=== PATIENT | male | born 1960 | race Caucasian/White ===

== ENCOUNTER 2016-07-03 15:02 | Emergency (ER) | payer MEDICARE, BC ==
[~2016-07-03] VITALS: Ht 167.6 cm; Wt 59.0 kg
[~2016-07-03 15:02] MED LIST: ALPR1TAB2 PO; ALPR1TAB6 PO; CITA10TA4 PO; CYCL10TA2 PO; EMTR1TAB11 PO; FENT1PAT17 TD; FENT1PAT21 TD; FEXO1TAB27 PO; FLUT15OI2 TP; MELO-150 PO; MORP100T30 PO; OXYC30TA PO; OXYC80TA16 PO; RALT400T PO; TRAZ300T2 PO; androgel; combivent inhaler
[2016-07-03] MEDS ORDERED: GUAIFENESIN/CODEINE 100mg/10mg 5 ML LIQUID. PO STA (15:29)
[2016-07-03] MEDS ORDERED: KETOROLAC 15 MG/ML VIAL. IV ONE (15:30)
--- NOTE | 2016-07-03 15:50 | RAD ---
EXAM: Chest one view. HISTORY: Chest pain. COMPARISON: 12/26/2009. FINDINGS: A frontal view of the chest is obtained. There are no confluent infiltrates. The lungs are expanded to the 12th posterior ribs. There is no pneumothorax or pleural effusion. The heart is not enlarged. There are atherosclerotic calcifications of the aorta. Changes of cervical fusion are partially visualized. IMPRESSION: 1. Hyperinflation suggests chronic obstructive pulmonary disease. No confluent infiltrates.
[2016-07-03 16:10] LABS: BASO % 1 % (0-3); EOS % 0 % (0-3); HEMATOCRIT 41.7 % (39.0-53.0); LYMPH # 0.8 x10^3/uL (1.0-4.8); LYMPH % 13 % (24-48); MEAN CORPUSCULAR HEMOGLOBIN 33 pg (25-35); MEAN CORPUSCULAR HGB CONC 34 g/dL (31-37); MEAN CORPUSCULAR VOLUME 99 fL (79-100); MONO % 16 % (0-9); NEUT % 70 % (31-73); PLATELET COUNT 142 x10^3/uL (140-400); RED BLOOD COUNT 4.23 x10^6/uL (4.30-5.70); RED CELL DISTRIBUTION WIDTH 12.8 % (11.5-14.5); WHITE BLOOD COUNT 5.9 x10^3/uL (4.0-11.0)
[2016-07-03] MEDS ORDERED: ACETAMINOPHEN 325 MG TABLET. PO ONE (16:15)
[2016-07-03 16:23] LABS: OBC FLU VALID
[2016-07-03 16:25] LABS: ALBUMIN 3.5 g/dL (3.4-5.0); CALCIUM 8.4 mg/dL (8.5-10.1); CREATININE 0.8 mg/dL (0.7-1.3); DIRECT BILIRUBIN 0.1 mg/dL (0.0-0.2); GFR 100.7; POTASSIUM 4.3 mmol/L (3.5-5.1); TOTAL BILIRUBIN 0.4 mg/dL (0.2-1.0); TOTAL PROTEIN 7.1 g/dL (6.4-8.2)
[2016-07-03] MEDS ORDERED: ACETAMINOPHEN 500 MG TABLET PO ONE (17:45)
[2016-07-03] MEDS ORDERED: SULF1TAB24 PO (17:46)
[2016-07-03] MEDS ORDERED: PROM5SYR2 PO (17:46)
--- NOTE | 2016-07-03 17:46 | PHYS DOC ---
Past Medical History Past Medical History: High Cholesterol, HIV, Other Additional Past Medical Histor: neck fussions, with neck hardware Past Surgical History: Other Additional Past Surgical Histo: reconstruction on left shoulder,with x 2 surgeries on neck Alcohol Use: Rarely Drug Use: None Adult General Chief Complaint Chief Complaint: CHEST WALL PAIN HPI HPI Patient is a 55 year old gentleman who presents here today complaining of chest discomfort. Patient reports the pain is been on for approximately 2 days. Patient has a history significant for HIV. Patient does smoke. Patient has no history of hypertension diabetes liver longer or kidney problems. Patient has any history of coronary disease or strokes in the past. Patient's primary care physician is Dr. Quintana. Patient denies any abdominal surgery or gallbladder surgery. Patient does not drink or do drugs. Patient is not allergic to any medications. Patient denied any fevers shaking chills although he does have a temperature of 101.5 here in the ER. Patient denies any nausea vomiting or diarrhea. Patient reports she's had a productive cough with pain to his chest with inspiration. Patient has any sore throat or ear pain. Patient reports she is on morphine fentanyl and oxycodone for his pain however reports he ran out of his fentanyl and is not had a chance to get that refilled of yet. Patient denies any dyspnea. She denies any rash. Patient has any headache. Patient has any nuchal rigidity. Patient denies any abdominal pain. Patient's physical exam was unremarkable. Patient's TMs are clear. Patient's oropharynx is clear. Patient's lungs had no wheezing rales or rhonchi. Patient' s abdomen was soft nontender no rebound or guarding. Patient did have reproducible tenderness to palpation to his anterior chest wall. Patient's physical exam was unremarkable and the ER otherwise Patient's ER workup was significant for normal chest x-ray and labs. Patient's influenza test were negative. Patient will be discharged home in stable condition on Bactrim. Patient likely has bronchitis. Given his history of HIV, for possible early PCP or early pneumonia empirically. Patient is very appreciative for the care that he is gone and he is requesting that we send him home some Phenergan with codeine. I did write the patient prescription for some Phenergan With Codeine to help him with the excessive coughing that he is doing. Review of Systems Review of Systems Constitutional: Denies fever or chills [] Eyes: Denies change in visual acuity, redness, or eye pain [] HENT: Denies nasal congestion or sore throat [] All other review of systems are negative except as documented in the history of present illness portion. Current Medications Current Medications Current Medications Medications (Trade) Dose Ordered Sig/Lan Start Time Stop Time Status Last Admin Dose Admin Acetaminophen (Tylenol) 1,000 mg 1X ONCE 07/03/16 17:45 07/03/16 17:46 DC Guaifenesin/ Codeine Phosphate (Robitussin Ac) 5 ml 1X STAT 07/03/16 15:29 07/03/16 15:43 DC 07/03/16 16:13 5 ML Ketorolac Tromethamine (Toradol) 15 mg 1X ONCE 07/03/16 15:30 07/03/16 15:43 DC 07/03/16 16:12 15 MG Allergies Allergies Allergies Coded Allergies Type Severity Reaction Last Updated Verified clarithromycin Allergy Unknown Rash 11/12/13 Yes Physical Exam Physical Exam Constitutional: Well developed, well nourished, no acute distress, non-toxic appearance. [] HENT: Normocephalic, atraumatic, bilateral external ears normal, oropharynx moist, no oral exudates, nose normal. [] Eyes: PERRLA, EOMI, conjunctiva normal, no discharge. [] Neck: Normal range of motion, no tenderness, supple, no stridor. [] Cardiovascular:Heart rate regular rhythm, reproducible tenderness to palpation to his anterior chest wall. Lungs & Thorax: Bilateral breath sounds clear to auscultation [] Abdomen: Bowel sounds normal, soft, no tenderness, no masses, no pulsatile masses. [] Skin: Warm, dry, no erythema, no rash. [] Back: No tenderness, no CVA tenderness. [] Extremities: No tenderness, no cyanosis, no clubbing, ROM intact, no edema. [] Neurologic: Alert and oriented X 3, normal motor function, normal sensory function, no focal deficits noted. [] Psychologic: Affect normal, judgement normal, mood normal. [] Current Patient Data Vital Signs Vital Signs Date Time Temp Pulse Resp B/P Pulse Ox O2 Delivery O2 Flow Rate FiO2 07/03/16 18:00 121/88 07/03/16 17:30 84 19 91 Room Air 07/03/16 15:40 101.7 101.7 Lab Values Laboratory Tests Test 07/03/16 15:54 07/03/16 15:55 Influenza Type A Antigen Negative (NEGATIVE) Influenza Type B Antigen Negative (NEGATIVE) White Blood Count 5.9x10^3/uL (4.0-11.0) Red Blood Count 4.23x10^6/uL (4.30-5.70) L Hemoglobin 14.0g/dL (13.0-17.5) Hematocrit 41.7% (39.0-53.0) Mean Corpuscular Volume 99fL (79-100) Mean Corpuscular Hemoglobin 33pg (25-35) Mean Corpuscular Hemoglobin Concent 34g/dL (31-37) Red Cell Distribution Width 12.8% (11.5-14.5) Platelet Count 142x10^3/uL (140-400) Neutrophils (%) (Auto) 70% (31-73) Lymphocytes (%) (Auto) 13% (24-48) L Monocytes (%) (Auto) 16% (0-9) H Eosinophils (%) (Auto) 0% (0-3) Basophils (%) (Auto) 1% (0-3) Neutrophils # (Auto) 4.1x10^3uL (1.8-7.7) Lymphocytes # (Auto) 0.8x10^3/uL (1.0-4.8) L Monocytes # (Auto) 0.9x10^3/uL (0.0-1.1) Eosinophils # (Auto) 0.0x10^3/uL (0.0-0.7) Basophils # (Auto) 0.0x10^3/uL (0.0-0.2) Sodium Level 130mmol/L (136-145) L Potassium Level 4.3mmol/L (3.5-5.1) Chloride Level 93mmol/L (98-107) L Carbon Dioxide Level 33mmol/L (21-32) H Anion Gap 4 (6-14) L Blood Urea Nitrogen 6mg/dL (8-26) L Creatinine 0.8mg/dL (0.7-1.3) Estimated GFR (Cockcroft-Gault) 100.7 Glucose Level 140mg/dL (70-99) H Calcium Level 8.4mg/dL (8.5-10.1) L Total Bilirubin 0.4mg/dL (0.2-1.0) Direct Bilirubin 0.1mg/dL (0.0-0.2) Aspartate Amino Transferase (AST) 37U/L (15-37) Alanine Aminotransferase (ALT) 27U/L (16-63) Alkaline Phosphatase 66U/L (46-116) Troponin I Quantitative < 0.017ng/mL (0.000-0.055) Total Protein 7.1g/dL (6.4-8.2) Albumin 3.5g/dL (3.4-5.0) Laboratory Tests 07/03/16 15:55 Laboratory Tests 07/03/16 15:55 EKG EKG [] Radiology/Procedures Radiology/Procedures [] Impressions: Chest x-ray clear no infiltrates or effusions. EKG reveals normal sinus rhythm without any evidence of acute ischemia. Course & Med Decision Making Course & Med Decision Making Pertinent Labs and Imaging studies reviewed. (See chart for details) [] Dragon Disclaimer Dragon Disclaimer This electronic medical record was generated, in whole or in part, using a voice recognition dictation system. Departure Departure Impression: Primary Impression: Bronchitis Additional Impressions: HIV (human immunodeficiency virus infection) Febrile illness, acute Disposition: 01 HOME, SELF-CARE Condition: IMPROVED Referrals: OSCAR HUANG (PCP) Patient Instructions: Acute Bronchitis, Chest Wall Pain, Viral Pneumonia, Infant Scripts Promethazine HCl/Codeine (Prometh-Codein 6.25-10 mg/5 ml)5 Ml Syrup10 Ml PO Q6HRS PRN COUGH #120 Prov:KAI ROMEO MD 07/03/16 Sulfamethoxazole/Trimethoprim (Bactrim Ds Tablet)1 Each Tablet1 Tab PO BID 10 Days Prov:KAI ROMEO MD 07/03/16 Problem Qualifiers KAI ROMEO MD Jul 03, 2016 17:46
[2016-07-03 18:00] VITALS: BP 121/88
--- NOTE | 2016-07-04 06:36 | EKG ---
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
== END 2016-07-03 17:57 | disposition home or self-care (01) ==
LOC: ER 15:02
DX: J40 Bronchitis, not specified as acute or chronic (principal); F17.200 Nicotine dependence, unspecified, uncomplicated; E78.00 Pure hypercholesterolemia, unspecified; Z21 Asymptomatic human immunodeficiency virus [HIV] infection status; Z88.1 Allergy status to other antibiotic agents; Z79.891 Long term (current) use of opiate analgesic; Z79.899 Other long term (current) drug therapy
CPT/HCPCS: 36415; 71010; 80048; 80076; 84484; 85027; 87804; 93005; 96374; 99285; J1885

== ENCOUNTER 2021-02-16 13:18 | Emergency (ER) | payer MEDICARE, BC ==
[~2021-02-16] VITALS: Ht 167.6 cm; Wt 61.0 kg
[~2021-02-16 13:18] MED LIST changes: -EMTR1TAB11 PO; +EMTR1TAB8 PO; -MELO-150 PO; +MELO15TA23 PO; -OXYC30TA PO; +OXYC30TA3 PO; +PROM5SYR2 PO; +SULF1TAB24 PO
[2021-02-16 13:51] VITALS: BP 134/90
[2021-02-16] MEDS ORDERED: KETOROLAC 30 MG/ML VIAL. IVP ONE (14:00)
--- NOTE | 2021-02-16 14:06 | RAD ---
EXAM: Left wrist, 3 views; left forearm, 2 views; left hand, 2 views. HISTORY: Pain and cellulitis. COMPARISON: None. FINDINGS: 3 views of the left wrist, 2 views of the left hand and left forearm are obtained. There is no fracture, dislocation or subluxation. There is a tiny suspected ossicle adjacent to the radial st yloid, likely sequela of remote injury. There is also a tiny ossicle along the dorsal aspect of the c arpal bones which may be due to a chronic nonunited triquetral fracture. There is degenerative spurri ng involving the third distal interphalangeal joint. There is no lytic or sclerotic osseous lesion. T here is no osseous erosion. IMPRESSION: No acute osseous finding. Electronically signed by: Adela Goodson MD (02/16/2021 2:04 PM) [id number]
--- NOTE | 2021-02-16 14:09 | PHYS DOC ---
Past Medical History Past Medical History: High Cholesterol, HIV, Other Additional Past Medical Histor: neck fussions, with neck hardware, spinal stenosis Past Surgical History: Cervical Fusion, Other Additional Past Surgical Histo: reconstruction on left shoulder,with x 2 surgeries on neck, Smoking Status: Current Every Day Smoker Alcohol Use: Occasionally Drug Use: None Social History Narrative: all by rx, per pt General Adult EDM: Chief Complaint: UPPER EXTREMITY PAIN HPI: HPI: 60-year-old male past medical history of HIV (cd4 700, viral load 10, on HAART) and spinal stenosis w/cervical fusion/chronic pain, presents the ED with complaints of " I think I got bit by a bug," complains of redness to right lateral wrist with red streaking up his forearm for the past few days. Associated painful wrist range of motion-hurts for his thumb to touch his 4th/5th digit. 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 Takes chronic pain medications including 100 mcg fentanyl patches, oxycodone and morphine. Is asking for an IM " anti- inflammatory" medication for the pain. Patient reports chronic tremors from his spinal stenosis. Has an MRI report with him from 2019 that shows C5-7 ACDF with severe stenosis over C3-5. Pt states "ricky says I have to live with it." Follows w/Dr. Esposito (ID). Denies any known blunt trauma. Cannot recall his last tetanus. Review of Systems: Review of Systems: Constitutional: Denies fever or chills. [] Eyes: Denies change in visual acuity. [] HENT: Denies nasal congestion or sore throat. [] Respiratory: Denies cough or shortness of breath. [] Cardiovascular: Denies chest pain or edema. [] GI: Denies nausea or vomiting : Denies incontinence or saddle anesthesia Musculoskeletal: Denies new back pain or joint pain. [] Integument: Denies desquamation or diaphoresis Neurologic: Denies headache, new neck pain, focal weakness or sensory changes. [] Endocrine: Denies polyuria or polydipsia. [] Lymphatic: Denies swollen glands. [] Psychiatric: Denies depression or anxiety. [] Heart Score: C/O Chest Pain: No Risk Factors: Risk Factors: DM, Current or recent (<one month) smoker, HTN, HLP, family history of CAD, obesity. Risk Scores: Score 0 - 3: 2.5% MACE over next 6 weeks - Discharge Home Score 4 - 6: 20.3% MACE over next 6 weeks - Admit for Clinical Observation Score 7 - 10: 72.7% MACE over next 6 weeks - Early Invasive Strategies Current Medications: Current Medications Medications (Trade) Dose Ordered Sig/Lan Start Time Stop Time Status Last Admin Dose Admin Ketorolac Tromethamine (Toradol 30mg Vial) 30 mg 1X ONCE 02/16/21 14:00 02/16/21 14:01 Allergies: Allergies: Allergies Coded Allergies Type Severity Reaction Last Updated Verified Sulfa (Sulfonamide Antibiotics) Allergy Severe 02/16/21 Yes sulfamethoxazole Allergy Severe 02/16/21 Yes trimethoprim Allergy Severe 02/16/21 Yes clarithromycin Allergy Intermediate Rash 02/16/21 Yes Physical Exam: PE: Constitutional: Well developed, well nourished, no acute distress, non-toxic appearance. HENT: Normocephalic, atraumatic, Eyes: EOMI, conjunctiva normal, no discharge. Neck: Normal range of motion, supple, Cardiovascular: S1/2 present, regular rhythm Lungs & Thorax: Speaking in full sentences, bilateral equal chest rise, no tachypnea or increased work of breathing Abdomen: soft, no tenderness, Skin: Warm, dry, erythema over lateral wrist/snuffbox with 3-4 red streaks extending up ventral aspect of right forearm-rash is not circumferential over the rash and does not appear to extend into the thenar eminence or hand, equal radial pulses, Extremities: no cyanosis, no lower extremity edema, painful nikita test, no pain at left elbow, median/ulnar/radial nerve sensation intact, hand grocery specialist slightly weaker on left than right, moves all 5 fingers, no digital flexor posturing Neurologic: Alert and oriented X 3, tremors with movement (denies alcohol use) Psychologic: Affect normal, judgement normal, mood normal. [] EKG: EKG: [] Radiology/Procedures: Radiology/Procedures: IMAGING REPORT Signed PATIENT: RESHMA OLIVER ACCOUNT: [id number] : 1960 LOCATION: ER AGE: 60 SEX: M EXAM STATUS: REG ER ORD. PHYSICIAN: MARY AMBROSE DO REASON: pain and cellultiis, PROCEDURE: WRIST 3V LEFT EXAM: Left wrist, 3 views; left forearm, 2 views; left hand, 2 views. HISTORY: Pain and cellulitis. COMPARISON: None. FINDINGS: 3 views of the left wrist, 2 views of the left hand and left forearm are obtained. There is no fracture, dislocation or subluxation. There is a tiny suspected ossicle adjacent to the radial styloid, likely sequela of remote injury. There is also a tiny ossicle along the dorsal aspect of the carpal bones which may be due to a chronic nonunited triquetral fracture. There is degenerative spurring involving the third distal interphalangeal joint. There is no lytic or sclerotic osseous lesion. There is no osseous erosion. IMPRESSION: No acute osseous finding. Electronically signed by: Adela Dietz MD (02/16/2021 2:04 PM) [id number] DICTATED and SIGNED BY: ADELA DIETZ MD DATE: 02/16/21 [id number] Course & Med Decision Making: Course & Med Decision Making Pertinent Labs and Imaging studies reviewed. (See chart for details) Concern for cellulitis over patient's left wrist extending up left forearm. Patient cannot recall any blunt injury, denies any recent high-pressure injection injury or IV drug use. Tetanus updated emergency department. 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 Will try clindamycin and recommend 24-hour follow-up to evaluate rash, given patient's immunocompromise state. Patient afebrile, nontoxic-appearing, calm and in no extremis or severe/active pain. Will discharge home with strict ED return precautions were given for fever, worsening rash, neurologic deficits or severe pain. Encouraged urgent outpatient follow-up with PMD and hand surgery-if rash that extended to hand will need urgent follow-up less than 96 hours. Life-threatening processes were considered but are low suspicion at this time, given history, physical exam and ED workup. Pt was educated on all prescription medications and adverse effects. All patient's questions were answered and pt was stable at time of discharge. Life/limb-threatening differential includes but is not limited to, trauma (fracture, dislocation, laceration, compartment syndrome, tendon or ligament injury), neurovascular injury or deficitcva/tia, infection (osteomyelitis, abscess, cellulitis, septic arthritis, necrotizing fasciitis), deep vein thrombosis, renal/cardiac/liver disease, medication adverse effect, lymphedema/anasarca, vascular insufficiency or malignancy, I have spoken with the patient and/or caregivers. I explained the patient's condition, diagnoses and treatment plan based on the information available to me at this time. I have answered the patient and/or caregiver's questions and addressed any concerns. The patient and/or caregivers have a good understanding of patient's diagnosis, condition and treatment plan as can be expected at this point. Vital signs have been stable. Patient's condition is stable and appropriate for discharge from the emergency department. Patient will pursue further outpatient evaluation with primary care physician or other designated or consulting physician as outlined in the discharge instructions. The patient and/or caregivers are agreeable to this plan of care and follow-up instructions have been explained in detail. The patient and/or caregivers have received these instructions in written form and have expressed an understanding of the discharge instructions. The patient and/or caregivers are aware that any significant change of condition or worsening of symptoms should prompt immediate return to this or the closest emergency department or call to 911. Hardeep Disclaimer: Pose Disclaimer: This electronic medical record was generated, in whole or in part, using a voice recognition dictation system. Departure Departure Impression: Primary Impression: Cellulitis of left upper limb Additional Impression: Need for DTaP vaccination Disposition: HOME / SELF CARE / HOMELESS Condition: STABLE Referrals: OSCAR HUANG (PCP) Follow-up with your primary care physician in 24 to 48 hours for wound check OR FOLLOW UP WITH FAMILY MEDICINE: [address] [facility], [address] [place] [address] Patient Instructions: Cellulitis, VIS, Diphtheria, Tetanus, and Pertussis (DTaP) - CDC Additional Instructions: FOLLOW UP WITH WOUND CARE: in 1-2 days for wound check, RETURN TO ED IF YOU SHOULD DEVELOP A FEVER [facility] [address] [facility], [address] [place] [address] [facility] FOR DEFIINITIVE MANAGEMENT WITHIN THE NEXT 4 DAYS IF RASH SHOULD EXTEND INTO THE HAND OR YOU DEVELOP SEVERE PAIN Appointments may be made with Chevy Mccallum MD, Anand Forman MD, Tio Omalley MD or Adal Mata MD, by calling [phone] EMERGENCY DEPARTMENT GENERAL DISCHARGE INSTRUCTIONS Thank you for coming to Emergency Department (ED) today and trusting us with you care. We trust that you had a positive experience in our Emergency Department. If you wish to speak to the department management, you may call the Director at [phone]. YOUR FOLLOW UP INSTRUCTIONS ARE FOLLOWS: 1. Do you have a private Doctor? If you do not have a private doctor, please ask for a resource list of physicians or clinics that may be able to assist you with follow up care. 2. The Emergency Physicain has interpreted your x-rays. The X-Ray specialist will also review them. If there is a change in the findings, you will be notified in 48 hours when at all possible. 3. A lab test or culture has been done, your results will be reviewed and you will be notified if you need a change in treatment. ADDITIONAL INSTRUCTIONS AND INFORMATION: 1. Your care today has been supervised by a physician who is specially trained in emergency care. Many problems require more than one evaluation for a complete diagnosis and treatment. We recommend that you schedule your follow up appointment as recommended to ensure complete treatment of you illness or injury. If you are unable to obtain follow up care and continue to have a problem, or if your condition worsens, we recommend that you return to the ED. 2. We are not able to safely determine your condition over the phone nor are we able to give sound medical advice over the phone. For these safety reasons, if you call for medical advice we will ask you to come to the ED for further evaluation. 3. If you have any questions regarding these discharge instructions please call the ED at [phone]. SAFETY INFORMATION: In the interest of safety, wellness, and injury prevention; we encourage you to wear your sealbelt, if you smoke; quite smoking, and we encourage family to use a protective helmet for bicycling and other sporting events that present an increased risk for head injury. IF YOUR SYMPTOMS WORSEN OR NEW SYMPTOMS DEVELOP, OR YOU HAVE CONCERNS ABOUT YOUR CONDITION; OR IF YOUR CONDITION WORSENS WHILE YOU ARE WAITING FOR YOUR FOLLOW UP APPOINTMENT; EITHER CONTACT YOUR PRIMARY CARE DOCTOR, THE PHYSICIAN WHOSE NAME AND NUMBER YOU WERE GIVEN, OR RETURN TO THE ED IMMEDIATELY. Scripts Bacillus Coagulans (Probiotic) 1 Each Capsule. 1 EACH PO DAILY for 30 Days, #30 CAP Prov: MARY AMBROSE DO 02/16/21 Clindamycin Hcl (CLINDAMYCIN HCL) 150 Mg Capsule 3 CAP PO QID for 10 Days, #120 CAP Prov: MARY AMBROSE DO 02/16/21 MARY AMBROSE DO Feb 16, 2021 14:08
[2021-02-16] MEDS ORDERED: DIPH,PERTUSS(ACELL),TET VAC/PF 0.5 ML SYRINGE. VAX IM ONE (14:15)
[2021-02-16] MEDS ORDERED: CLIN150C16 PO (14:20)
[2021-02-16] MEDS ORDERED: BACI1CAP6 PO (14:20)
== END 2021-02-16 14:27 | disposition home or self-care (01) ==
LOC: ER 13:18
DX: L03.114 Cellulitis of left upper limb (principal); E78.00 Pure hypercholesterolemia, unspecified; F17.200 Nicotine dependence, unspecified, uncomplicated; Z88.2 Allergy status to sulfonamides; Z88.1 Allergy status to other antibiotic agents
CPT/HCPCS: 73090; 73120; 90471; 90715; 96374; 99284; J1885